=== PATIENT | female | born 1990 | race Caucasian/White ===

== ENCOUNTER 2017-10-14 20:31 | Emergency (ER) | payer OTHER ==
[2017-10-14] MEDS: KETOROLAC 60 MG INJ IM (23:14)
[2017-10-14] MEDS: ALBUTEROL/IPRATROPIUM (NEB) 3 ML AMP HHN (23:26)
== END 2017-10-15 02:06 | disposition home or self-care (01) ==
LOC: FTE 20:31
DX: J11.1 Influenza due to unidentified influenza virus with other respiratory manifestations (principal); J20.9 Acute bronchitis, unspecified
CPT/HCPCS: 71046; 94664; 96372; 99284-25